=== PATIENT | female | born 1990 | race Caucasian/White ===

== ENCOUNTER 2017-11-10 10:42 | Emergency (ER) | END 2017-11-10 14:15 | disposition left against medical advice (07) ==

== ENCOUNTER 2017-11-11 03:02 | Emergency (ER) | END 2017-11-11 07:49 | disposition home or self-care (01) ==

== ENCOUNTER 2018-07-30 23:18 | Emergency (ER) | END 2018-07-31 01:01 | disposition left against medical advice (07) ==

== ENCOUNTER 2018-12-19 20:43 | Emergency (ER) | payer SELFPAY ==
[~2018-12-19] VITALS: Wt 89.7 kg
[~2018-12-19 20:43] MED LIST: AMOX500C2 PO; DICY10CA40 PO; HYDR-3980 PO; OMEP40CA6 PO
[2018-12-19 23:03] VITALS: BP 126/65; PULSE 81; RESP 19
[2018-12-20] MEDS ORDERED: IBUPROFEN 600 MG TAB PO ONE (01:00)
[2018-12-20] MEDS ORDERED: PROMETHAZINE/CODEINE 5ML CUP PO ONE (01:00)
[2018-12-20] MEDS ORDERED: PROM5SYR2 PO (01:07)
[2018-12-20] MEDS ORDERED: AMOX1TAB10 PO (01:07)
[2018-12-20] MEDS ORDERED: IBUP-1542 PO (01:07)
--- NOTE | 2018-12-20 01:55 | ERD ---
ER Documentation Chief Complaint Chief Complaint BIB SELF, CC: LEFT EAR PAIN AND COUGH X 2 DAYS HPI 28-year-old female presents with complaint of cough and left ear pain for the past 2 days. States the cough is a dry cough. Denies any fevers. Not taking any treatments. Denies decreased hearing or pain or swelling behind her ears. Denies wheezing, shortness of breath, chest pain, respiratory distress, stridor. Denies past medical history. Denies allergies. Denies medications. Denies surgeries. Denies alcohol, tobacco, drug use. Up to date on vaccines. ROS All systems reviewed and are negative except as per history of present illness. Medications Home Meds Active Scripts Ibuprofen* (Motrin*) 600 Mg Tab, 600 MG PO Q6H PRN for PAIN AND OR ELEVATED TEMP, #30 TAB Prov:KELECHI RUVALCABA 12/20/18 Promethazine HCl/Codeine (Prometh-Codein 6.25-10 mg/5 ml) 5 Ml Syrup, 5-10 ML PO Q4 for cough, #4 OZ Prov:KELECHI RUVALCABA 12/20/18 Amoxicillin/Potassium Clav (Amox-Clav 875-125 mg Tablet) 875-125 mg Tab, 1 TAB PO BID for otitis media for 10 Days, #20 TAB Prov:KELECHI RUVALCABA 12/20/18 Omeprazole* (Omeprazole*) 40 Mg Capsule.dr, 40 MG PO DAILY, #10 CAP Prov:OLIVIER HODGESTNIURKA Barajas DO 11/11/17 Hydrocodone/Acetaminophen ([place] 10-325 Tablet) 1 Each Tablet, 1 TAB PO Q6H PRN for PAIN, #20 TAB Prov:JERMAN HODGE DO 11/11/17 Dicyclomine HCl (Dicyclomine HCl) 10 Mg Capsule, 20 MG PO QID, #30 CAP Prov:OLIVIER HODGESTNIURKA Barajas DO 11/11/17 Amoxicillin* (Amoxicillin*) 500 Mg Cap, 500 MG PO BID for 7 Days, CAP Prov:CONNOR CATES PA-C 09/15/16 Allergies Allergies: Coded Allergies: No Known Drug Allergies (Verified Allergy, Mild, 09/03/14) PMhx/Soc Medical and Surgical Hx: pt denies Medical Hx, pt denies Surgical Hx History of Surgery: Yes (Cholecystectomy (2014)) Anesthesia Reaction: No Hx Neurological Disorder: No Hx Respiratory Disorders: No Hx Cardiac Disorders: No Hx Psychiatric Problems: No Hx Miscellaneous Medical Probl: No Hx Alcohol Use: Yes (Social) Hx Substance Use: Yes (Formerly Marijuana,Heroin) Hx Tobacco Use: Yes (Cigarettes stick 5/day) Smoking Status: Current every day smoker FmHx Family History: No diabetes, No coronary disease, No other Physical Exam Vitals Vital Signs Date Temp Pulse Resp B/P (MAP) Pulse Ox O2 O2 Flow FiO2 Time Delivery Rate 12/20/18 99.1 01:20 12/19/18 98.1 81 19 126/65 100 23:03 (85) Physical Exam Const: No acute distress Head: Atraumatic Eyes: Normal Conjunctiva ENT: Normal External Ears, Nose and Mouth. Left TM is edematous and erythematous as well as bulging. Canal is patent with no swelling noted. Neck: Full range of motion. No meningismus. Resp: Clear to auscultation bilaterally Cardio: Regular rate and rhythm, no murmurs Abd: Soft, non tender, non distended. Normal bowel sounds Skin: No petechiae or rashes Back: No midline or flank tenderness Ext: No cyanosis, or edema Neur: Awake and alert Psych: Normal Mood and Affect Results 24 hrs Current Medications Medications Dose Sig/Shy Start Time Status Last (Trade) Ordered Route PRN Stop Time Admin Dose Reason Admin Ibuprofen 600 mg ONCE ONCE 12/20/18 DC (Motrin) PO 01:00 12/20/18 01:01 Promethazine 10 ml ONCE ONCE 12/20/18 DC 12/20/18 HCl/ PO 01:00 12/20/18 01:15 Codeine 01:01 (Phenergan/ Codeine) Procedures/MDM 28-year-old female presents with complaint of cough and left ear pain for the past 2 days. States the cough is a dry cough. Denies any fevers. Not taking any treatments. Denies decreased hearing or pain or swelling behind her ears. Denies wheezing, shortness of breath, respiratory distress, stridor. I have low suspicion for tubercolosis, pneumonia, pleural effusion, acute heart failure, foreign body aspiration, pulmonary embolism, pneumothorax, or other emergent etiology. Patients O2 sat is normal and is not having difficulty breathing, therefore patient is fit for discharge. In addition I have low suspicion for mastoiditis due to lack of erythema, edema, or ttp over mastoid area. I have low suspicion for intercranial abscess due to lack of LANGLEY or focal neurological findings. I have low suspicion of TM rupture or trauma based on lack of hearing loss, vertigo, and PE findings. Most likely diagnosis is acute otitis media. Based on these findings I do not feel that additional labs or imaging is necessary. Patient was given Rx for Augmentin, ibuprofen, and promethazine with codeine for cough. Patient was discharged with strict ER precautions. Patient was recommended to follow-up with PMD. All questions answered at discharge. Patient discharged with strict ER precautions. All questions answered at dis charge. Departure Diagnosis: Primary Impression: Otitis media Otitis media type: unspecified Chronicity: acute Qualified Codes: H66.90 - Otitis media, unspecified, unspecified ear Additional Impression: URI (upper respiratory infection) URI type: unspecified viral URI Qualified Codes: J06.9 - Acute upper respiratory infection, unspecified Condition: Stable Patient Instructions: Otitis Media, Abx Tx (Adult) Referrals: [facility] YOU HAVE RECEIVED A MEDICAL SCREENING EXAM AND THE RESULTS INDICATE THAT YOU DO NOT HAVE A CONDITION THAT REQUIRES URGENT TREATMENT IN THE EMERGENCY DEPARTMENT. FURTHER EVALUATION AND TREATMENT OF YOUR CONDITION CAN WAIT UNTIL YOU ARE SEEN IN YOUR DOCTORS OFFICE WITHIN THE NEXT 1-2 DAYS. IT IS YOUR RESPONSIBILITY TO MAKE AN APPOINTMENT FOR FOLOW-UP CARE. IF YOU HAVE A PRIMARY DOCTOR --you should call your primary doctor and schedule an appointment IF YOU DO NOT HAVE A PRIMARY DOCTOR YOU CAN CALL OUR PHYSICIAN REFERRAL HOTLINE AT IF YOU CAN NOT AFFORD TO SEE A PHYSICIAN YOU CAN CHOSE FROM THE FOLLOWING [facility] [address] [facility] [address] [facility] [facility] [address] [facility] [address] [facility] [address] [facility]. [facility]. [address] Additional Instructions: FOLLOW UP WITH YOUR PRIMARY CARE PHYSICIAN TOMORROW.Return to this facility if you are not improving as expected. KELECHI RUVALCABA Dec 20, 2018 01:55
== END 2018-12-20 01:20 | disposition home or self-care (01) ==
LOC: FTE 20:43
DX: H66.92 Otitis media, unspecified, left ear (principal); J06.9 Acute upper respiratory infection, unspecified; F17.210 Nicotine dependence, cigarettes, uncomplicated
CPT/HCPCS: 99283